=== PATIENT | male | born 1950 | race Caucasian/White ===

== ENCOUNTER 2017-04-06 07:11 | Day surgery (SDC) | payer OTHER, MEDICARE ==
[~2017-04-06 07:11] MED LIST: Lactated Ringers 1,000 ML IV SCH; ceFAZolin 2 GM in Premix Bag 1 BAG IV ONE
[2017-04-06] MEDS ORDERED: Propofol 200 MG/20 ML SDV ONE ×2 (07:55→08:59)
--- NOTE | 2017-04-06 08:07 | PCM.PREANE ---
Preanesthetic Assessment - Anesthesia/Transfusion/Family Hx Anesthesia History: Prior Anesthesia Without Reaction Family History of Anesthesia Reaction: No Transfusion History: No Prior Transfusion(s) - Review of Systems General: No Symptoms Pulmonary: No Symptoms Cardiovascular: No Symptoms Gastrointestinal: No Symptoms Neurological: No Symptoms Other: Reports: None - Physical Assessment NPO Status Date: 04/05/17 Height: 1.88 m Weight: 114.305 kg ASA Class: 2 Mental Status: Alert & Oriented x3 Airway Class: Mallampati = 1 Dentition: Reports: Normal Dentition ROM/Head Extension: Full Lungs: Clear to Auscultation, Normal Respiratory Effort Cardiovascular: Regular Rate, Regular Rhythm - Allergies Allergies/Adverse Reactions: Allergies Allergy/AdvReac Type Severity Reaction Status Date / Time No Known Allergies Allergy Verified 04/01/17 13:59 - Blood Blood Available: No - Anesthesia Plan Pre-Op Medication Ordered: None - Acknowledgements Anesthesia Type Planned: MAC Pt an Appropriate Candidate for the Planned Anesthesia: Yes Alternatives and Risks of Anesthesia Discussed w Pt/Guardian: Yes Pt/Guardian Understands and Agrees with Anesthesia Plan: Yes Additional Comments: PLAN: MAC with No benzodiazepines PreAnesthesia Questionnaire Other HEENT History: wears glasses Cardiovascular History: Reports: High Cholesterol Respiratory History: Reports: Other (See Below) Other Respiratory History: was told he has some scaring in his lungs Gastrointestinal History: Reports: Other (See Below) Other Gastrointestinal History: hx of sigmoid colon cancer Genitourinary History: Reports: BPH Musculoskeletal History: Reports: Arthritis, Back Pain, Chronic Endocrine/Metabolic History: Reports: Hypothyroidism Oncologic (Cancer) History: Reports: Colon - Past Surgical History GI Surgical History: Reports: Colon, Colonoscopy Other GI Surgeries/Procedures: hx of colon resection, hx of exploratory Laparotomy Oncologic Surgical History: Reports: Other (See Below) Other Oncologic Surgeries/Procedures: Colon Resection - SUBSTANCE USE Smoking Status *Q: Former Smoker Second Hand Smoke Exposure: Yes Days Per Week of Alcohol Use: 0 Number of Drinks Per Day: 0 Total Drinks Per Week: 0 Recreational Drug Use History: Yes Recreational Drug Last Use: quit marijuana in 1990 - HOME MEDS Home Medications: Home Meds Ascorbic Acid 500 mg PO DAILY 04/01/17 [History] Cholecalciferol (Vitamin D3) [Vitamin D3] 400 mg PO DAILY 04/01/17 [History] Finasteride 5 mg PO DAILY 04/01/17 [History] Fish Oil/[place]-3 Fatty Acids [Fish Oil 1,000 MG] 2,000 mg PO BID 04/01/17 [ History] Levothyroxine Sodium [Synthroid] 125 mcg PO DAILY 04/01/17 [History] Meloxicam 15 mg PO DAILY 04/01/17 [History] Simvastatin [Zocor] 10 mg PO BEDTIME 04/01/17 [History] Testosterone Cypionate 150 mg IM ASDIRECTED 04/01/17 [History] Ubidecarenone [Co Q-10] 100 mg PO DAILY 04/01/17 [History] - CURRENT (IN HOUSE) MEDS Current Meds: Current Medications Lactated Ringer's (Ringers, Lactated) 1,000 mls @ 125 mls/hr IV ASDIRECTED WYATT Discontinued Medications Cefazolin Sodium/Dextrose 2 gm (/ Premix) 50 mls @ 100 mls/hr IV ONETIME ONE Stop: 04/06/17 05:29
[2017-04-06] MEDS ORDERED: ePHEDrine 50 MG/ML SDV ONE (08:11)
[2017-04-06] MEDS ORDERED: Midazolam 1 MG/ML 2 ML SDV ONE (08:15)
[2017-04-06] MEDS ORDERED: Lidocaine 2% 5 ML SDV ONE (08:15)
[2017-04-06] MEDS ORDERED: fentaNYL 100 MCG/2 ML SDV ONE (08:15)
[2017-04-06] MEDS ORDERED: Bupivacaine 0.25%/EPINEPHrine 1:200,000 10 ML SDV ONE (08:57)
[2017-04-06] MEDS ORDERED: Acetaminophen/oxyCODONE 325-7.5 MG Tab PO ONE (09:00)
--- NOTE | 2017-04-06 09:52 | PCM.OPNOTE ---
- General Post-Op/Procedure Note Date of Surgery/Procedure: 04/06/17 Operative Procedure(s): portacath removal, L chest Findings: portacath L removed, tip is intact; [id number] Pre Op Diagnosis: portacath removal, L Post-Op Diagnosis: Same Anesthesia Technique: MAC, Moderate Sedation Primary Surgeon: Eric Dotson Pathology: sent Complications: None Condition: Good
--- NOTE | 2017-04-06 10:38 | OR ---
SURGEON: Eric Dotson MD DATE OF PROCEDURE: 04/06/2017 PREOPERATIVE DIAGNOSIS: Port-A-Cath removal. POSTOPERATIVE DIAGNOSIS: Port-A-Cath removal. PROCEDURE PERFORMED: Removal of Port-A-Cath from the left chest. COMPLICATIONS: None. FINDINGS: Port-A-Cath was removed en bloc and the tip was intact. PROCEDURE IN DETAIL: The patient was taken to the operating room and placed in a supine position. Upon induction of mild general sedation with Diprivan and the patient's left chest was prepped and draped in a sterile fashion. Lidocaine infiltrated at the previous port incision site and then using a skin scalpel, incision was made, which entered into the fibrous pocket of the port and the port was removed en bloc, and the pressure was applied to the jugular and tunneled site for over 5 minutes. Port site was clean, dry, and intact upon closing with 3-0 Vicryl and 3-0 Ethilon followed with appropriate dressing. The patient was then awakened and transferred to recovery room in hemodynamically stable condition. The patient tolerated the procedure well. There were no intraoperative complications. LEONELA / NBA /[id number]
--- NOTE | 2017-04-06 12:13 | PCM48HPAN ---
Post Anesthesia Note - EVALUATION WITHIN 48HRS OF ANESTHETIC Vital Signs in Normal Range: Yes Patient Participated in Evaluation: Yes Respiratory Function Stable: Yes Airway Patent: Yes Cardiovascular Function Stable: Yes Hydration Status Stable: Yes Pain Control Satisfactory: Yes Nausea and Vomiting Control Satisfactory: Yes Mental Status Recovered: Yes
--- NOTE | 2017-04-06 12:13 | PCM.POSTAN ---
POST ANESTHESIA ASSESSMENT - MENTAL STATUS Mental Status: Alert, Oriented - RESPIRATORY Respiratory Status: Respiratory Rate WNL, Airway Patent, O2 Saturation Stable - CARDIOVASCULAR CV Status: Pulse Rate WNL, Blood Pressure Stable - GASTROINTESTINAL GI Status: No Symptoms - POST OP HYDRATION Hydration Status: Adequate & Stable
== END 2017-04-06 10:50 | disposition home or self-care (01) ==
LOC: MW.SDS 07:11
PROVIDERS: ATTEND Surgery
DX: Z45.2 Encounter for adjustment and management of vascular access device (principal); M19.90 Unspecified osteoarthritis, unspecified site; N40.1 Benign prostatic hyperplasia with lower urinary tract symptoms; R35.1 Nocturia; E78.00 Pure hypercholesterolemia, unspecified; E03.9 Hypothyroidism, unspecified; Z85.038 Personal history of other malignant neoplasm of large intestine; Z86.19 Personal history of other infectious and parasitic diseases; Z87.891 Personal history of nicotine dependence; Z79.899 Other long term (current) drug therapy; Z90.49 Acquired absence of other specified parts of digestive tract; Z98.890 Other specified postprocedural states
CPT/HCPCS: 36590; J2250; J3010; J7120; 00400; 88300; J2704

== ENCOUNTER 2017-07-27 12:56 | Emergency (ER) | payer OTHER, MEDICARE ==
[2017-07-27] MEDS ORDERED: Ketorolac 30 MG/ML SDV IVPUSH ONE (13:07)
[2017-07-27] MEDS ORDERED: Ondansetron 4 MG/2 ML SDV IVPUSH ONE ×2 (13:07→15:34)
--- NOTE | 2017-07-27 13:08 | EDM.PDOC ---
ED HPI GENERAL MEDICAL PROBLEM - General Chief Complaint: Abdominal Pain Stated Complaint: SENT BY [facility] CT SCAN Time Seen by Provider: 07/27/17 13:08 Source of Information: Reports: Patient - History of Present Illness INITIAL COMMENTS - FREE TEXT/NARRATIVE: HISTORY AND PHYSICAL: History of present illness: [ Patient presents from the [facility] with abdominal pain, has a history of a ventral abdominal surgery he states is secondary to hernia however I see on his records he has a history of bowel perforation, which would explanain his large midline incision. Apparently the [facility] had performed ultrasound of the abdomen and there is evidence of bowel herniation He was sent here for lab and CT of his abdomen pelvis, he does complain of 4 out of 10 pain he is in no distress he has had some vomiting over the last day or 2 He has been nothing by mouth over the last 24 hours per patient Currently no fever vomiting chills sweats no chest pain shortness of breath headache dizziness palpitation about a urine symptoms Cardiac history Review of systems: As per history of present illness and below otherwise all systems reviewed and negative. Past medical history: As per history of present illness and as reviewed below otherwise noncontributory. Surgical history: As per history of present illness and as reviewed below otherwise noncontributory. Social history: No reported history of drug or alcohol abuse. Family history: As per history of present illness and as reviewed below otherwise noncontributory. Physical exam: HEENT: Atraumatic, normocephalic, pupils reactive, negative for conjunctival pallor or scleral icterus, mucous membranes moist, throat clear, neck supple, nontender, trachea midline. Lungs: Clear to auscultation, breath sounds equal bilaterally, chest nontender. Heart: S1S2, regular, negative for clicks, rubs, or JVD. Abdomen: Soft, nondistended, nontender. Negative for masses or hepatosplenomegaly. Negative for costovertebral tenderness. Pelvis: Stable nontender. Genitourinary: Deferred. Rectal: Deferred. Extremities: Atraumatic, negative for cords or calf pain. Neurovascular unremarkable. Neuro: Awake, alert, oriented. Cranial nerves II through XII unremarkable. Cerebellum unremarkable. Motor and sensory unremarkable throughout. Exam nonfocal. Diagnostics: [CBC CMP lipase troponin UA CT abdomen pelvis with contrast ] Therapeutics: [Normal saline 500 mL bolus Zofran 8 mg IV Toradol 30 mg IV Morphine 2 mg IV NG tube placement Nothing by mouth Discussed with Dr. Gayle he did initially except the patient Patient in the interim had refused treatment here at the facility requesting treatment at [place] Shortly after this Dr. Gayle and return calls stating that we may not have appropriate mesh after reviewing the case and would likely need a larger facility Dr. Cole general surgeon on-call at [facility] gracious in accepting the patient through [facility] for evaluation and treatment ] Impression: [Abdominal pain Ventral small bowel herniation with obstruction Leukocytosis ] Definitive disposition and diagnosis as appropriate pending reevaluation and review of above. abdomen Pain Score (Numeric/FACES): 8 - Related Data Allergies Allergy/AdvReac Type Severity Reaction Status Date / Time No Known Allergies Allergy Verified 07/27/17 13:03 Home Meds: Home Meds Ascorbic Acid 500 mg PO DAILY 04/01/17 [History] Cholecalciferol (Vitamin D3) [Vitamin D3] 400 mg PO DAILY 04/01/17 [History] Finasteride 5 mg PO DAILY 04/01/17 [History] Fish Oil/[place]-3 Fatty Acids [Fish Oil 1,000 MG] 2,000 mg PO BID 04/01/17 [ History] Levothyroxine Sodium [Synthroid] 125 mcg PO DAILY 04/01/17 [History] Meloxicam 15 mg PO DAILY 04/01/17 [History] Simvastatin [Zocor] 10 mg PO BEDTIME 04/01/17 [History] Past Medical History Other HEENT History: wears glasses Cardiovascular History: Reports: High Cholesterol Respiratory History: Reports: Other (See Below) Other Respiratory History: was told he has some scaring in his lungs Gastrointestinal History: Reports: Other (See Below) Other Gastrointestinal History: hx of sigmoid colon cancer Genitourinary History: Reports: BPH Musculoskeletal History: Reports: Arthritis, Back Pain, Chronic Endocrine/Metabolic History: Reports: Hypothyroidism Oncologic (Cancer) History: Reports: Colon - Past Surgical History GI Surgical History: Reports: Colon, Colonoscopy Other GI Surgeries/Procedures: hx of colon resection, hx of exploratory Laparotomy Oncologic Surgical History: Reports: Other (See Below) Other Oncologic Surgeries/Procedures: Colon Resection Social & Family History - Tobacco Use Smoking Status *Q: Former Smoker Second Hand Smoke Exposure: Yes - Alcohol Use Days Per Week of Alcohol Use: 0 Number of Drinks Per Day: 0 Total Drinks Per Week: 0 - Recreational Drug Use Recreational Drug Use: Yes Drug Use in Last 12 Months: No Recreational Drug Last Use: quit marijuana in 1990 ED ROS GENERAL - Review of Systems Review Of Systems: ROS reveals no pertinent complaints other than HPI. ED EXAM, GENERAL - Physical Exam Exam: See Below Course - Vital Signs Last Recorded V/S: Last Vital Signs Temp 98.9 F 07/27/17 14:15 Pulse 98 07/27/17 14:15 Resp 18 07/27/17 14:15 BP 135/74 07/27/17 14:15 Pulse Ox 92 L 07/27/17 14:15 - Orders/Labs/Meds Orders: Active Orders 24 hr Category Date Time Status EKG Documentation Completion [RC] STAT Care 07/27/17 13:07 Active Chest 1V Frontal [CR] Stat Exams 07/27/17 15:09 Ordered Sodium Chloride 0.9% [Normal Saline] 500 ml Med 07/27/17 13:15 Active IV STAT Medication Orders Sodium Chloride (Normal Saline) 500 mls @ 999 mls/hr IV STAT WYATT Last Admin: 07/27/17 13:24 Dose: 999 mls/hr Labs: Laboratory Tests 07/27/17 07/27/17 07/27/17 Range/Units 13:07 13:24 13:24 WBC 15.48 H (4.0-11.0) K/uL RBC 5.73 (4.50-5.90) M/uL Hgb 18.3 H (13.0-17.0) g/dL Hct 53.1 H (38.0-50.0) % MCV 92.7 (80.0-98.0) fL MCH 31.9 (27.0-32.0) pg MCHC 34.5 (31.0-37.0) g/dL RDW Std Deviation 47.6 (28.0-62.0) fl RDW Coeff of Elena 14 (11.0-15.0) % Plt Count 235 (150-400) K/uL MPV 10.60 (7.40-12.00) fL Neut % (Auto) 87.8 H (48.0-80.0) % Lymph % (Auto) 6.8 L (16.0-40.0) % [place] % (Auto) 5.2 (0.0-15.0) % Eos % (Auto) 0.1 (0.0-7.0) % Baso % (Auto) 0.1 (0.0-1.5) % Neut # (Auto) 13.6 H (1.4-5.7) K/uL Lymph # (Auto) 1.1 (0.6-2.4) K/uL [place] # (Auto) 0.8 (0.0-0.8) K/uL Eos # (Auto) 0.0 (0.0-0.7) K/uL Baso # (Auto) 0.0 (0.0-0.1) K/uL Nucleated RBC % 0.0 /100WBC Nucleated RBCs # 0 K/uL Sodium 139 (136-146) mmol/L Potassium 4.2 (3.5-5.1) mmol/L Chloride 107 (98-110) mmol/L Carbon Dioxide 22 (21-31) mmol/L BUN 22 (6.0-23.0) mg/dL Creatinine 1.1 (0.6-1.5) mg/dL Est Cr Clr Drug Dosing 77.84 mL/min Estimated GFR (MDRD) > 60.0 ml/min Glucose 163 H (60-110) mg/dL Calcium 8.9 (8.8-10.8) mg/dL Total Bilirubin 0.9 (0.1-1.5) mg/dL AST 27 (5-40) IU/L ALT 42 (8-54) IU/L Alkaline Phosphatase 79 (40-150) Troponin I < 0.10 (0.0-0.29) NG/ML Total Protein 7.9 (6.0-8.0) g/dL Albumin 4.4 (3.4-4.8) g/dL Globulin 3.5 (2.0-3.5) g/dL Albumin/Globulin Ratio 1.3 (1.3-2.8) Lipase 20 (7-80) U/L Urine Color YELLOW Urine Appearance CLEAR Urine pH 6.0 (5.0-8.0) Ur Specific [place] >= 1.030 (1.001-1.035) Urine Protein 100 (NEGATIVE) mg/dL Urine Glucose (UA) NEGATIVE (NEGATIVE) mg/dL Urine Ketones NEGATIVE (NEGATIVE) mg/dL Urine Occult Blood TRACE-INTACT (NEGATIVE) Urine Nitrite NEGATIVE (NEGATIVE) Urine Bilirubin NEGATIVE (NEGATIVE) Urine Urobilinogen 0.2 (<2.0) EU/dL Ur Leukocyte Esterase NEGATIVE (NEGATIVE) Urine RBC 0-2 (0-2/HPF) Urine WBC 0-1 (0-5/HPF) Ur Epithelial Cells OCCASIONAL (NONE-FEW) Urine Bacteria RARE (NEGATIVE) Urine Mucus LIGHT (NONE-MOD) Meds: Medications Generic Name Dose Route Start Last Admin Trade Name Freq PRN Reason Stop Dose Admin Sodium Chloride 500 mls @ 999 mls/hr 07/27/17 13:15 07/27/17 13:24 Normal Saline IV 999 mls/hr STAT WYATT Administration Discontinued Medications Generic Name Dose Route Start Last Admin Trade Name Freq PRN Reason Stop Dose Admin Iopamidol 100 ml 07/27/17 14:21 07/27/17 14:23 Isovue Multipack-370 (76%) IVPUSH 07/27/17 14:22 100 ml ONETIME STA Administration Ketorolac Tromethamine 30 mg 07/27/17 13:07 07/27/17 13:24 Toradol IVPUSH 07/27/17 13:08 30 mg ONETIME ONE Administration Morphine Sulfate 2 mg 07/27/17 15:08 07/27/17 15:19 Morphine IVPUSH 07/27/17 15:09 2 mg ONETIME ONE Administration Ondansetron HCl 8 mg 07/27/17 13:07 07/27/17 13:24 Zofran IVPUSH 07/27/17 13:08 8 mg ONETIME ONE Administration Departure - Departure Time of Disposition: 15:25 Disposition: DC/Tfer to Other 70 Condition: Fair Clinical Impression: Ventral hernia with bowel obstruction - Discharge Information Referrals: PCP,None [Primary Care Provider] - Forms: ED Department Discharge - My Orders Last 24 Hours: My Active Orders 07/27/17 13:07 EKG Documentation Completion [RC] STAT 07/27/17 13:15 Sodium Chloride 0.9% [Normal Saline] 500 ml IV STAT 07/27/17 15:09 Chest 1V Frontal [CR] Stat - Assessment/Plan Last 24 Hours: My Active Orders 07/27/17 13:07 EKG Documentation Completion [RC] STAT 07/27/17 13:15 Sodium Chloride 0.9% [Normal Saline] 500 ml IV STAT 07/27/17 15:09 Chest 1V Frontal [CR] Stat
[2017-07-27] MEDS ORDERED: Sodium Chloride 0.9% 500 ML IV SCH (13:15)
[2017-07-27 13:58] LABS: CHLORIDE,CL 107 mmol/L (98-110); SODIUM,NA 139 mmol/L (136-146)
[2017-07-27] MEDS ORDERED: Iopamidol 755 MG/ML 500 ML Multipack Bottle IVPUSH STA (14:21)
--- NOTE | 2017-07-27 15:02 | CT ---
CT of the abdomen and pelvis with contrast. HISTORY: Pain TECHNIQUE: Axial CT images were obtained of the abdomen and pelvis following administration of 100 mL of Isovue-370 in the left antecubital fossa without complication. Coronal and sagittal reconstructio ns obtained. FINDINGS: The lung bases are clear, no pleural effusion. The liver, spleen, adrenal glands, and pancreas appear normal. Probable tiny gallstones noted. No bul ky retroperitoneal lymphadenopathy or abdominal ascites. The kidneys enhance and function symmetrically without evidence of obstructive uropathy. 3 mm nonobst ructing stone within the right kidney. There is a ventral abdominal hernia containing small bowel with mild prominence of the proximal smal l bowel measuring up to 3.6 cm. There is a layer of fluid along the ventral abdominal wall adjacent t o the hernia and tracking along the muscular wall. The small bowel distal to the hernia is decompress ed. Small bowel within and distal to the hernia enhances. Stool and gas is noted within the colon. Di verticulosis without evidence of diverticulitis. Moderate prostatomegaly. Visualized osseous structures appear normal. IMPRESSION: 1. Ventral abdominal hernia containing small bowel with decompressed small bowel distal to the hernia consistent with a mechanical bowel obstruction. There is fluid tracking along the hernia and abdomin al wall. 2. Diverticulosis without evidence of diverticulitis. 3. Moderate prostatomegaly. 4. Probable tiny cholelithiasis. 5. Nonobstructing nephrolithiasis.
[2017-07-27] MEDS ORDERED: Morphine 2 MG/ML Syringe IVPUSH ONE (15:08)
--- NOTE | 2017-07-27 15:23 | CR ---
EXAMINATION: Portable chest radiograph. HISTORY: Shortness of breath. FINDINGS: The trachea is midline. The cardiomediastinal silhouette is within normal limits. No pulmonary infilt rates, effusions or pneumothorax. Mild interstitial prominence. Osseous structures appear unremarkable. IMPRESSION: No acute cardiopulmonary process.
[2017-07-27] MEDS ORDERED: Ondansetron 4 MG/2 ML SDV ONE (15:36)
[2017-07-27] MEDS ORDERED: Prochlorperazine 10 MG/2 ML SDV IVPUSH ONE (16:25)
== END 2017-07-27 16:31 | disposition other institution (70) ==
LOC: MW.ED 12:56
DX: K43.6 Other and unspecified ventral hernia with obstruction, without gangrene (principal); E78.00 Pure hypercholesterolemia, unspecified; E03.9 Hypothyroidism, unspecified; Z87.891 Personal history of nicotine dependence; Z79.899 Other long term (current) drug therapy
CPT/HCPCS: 36415; 43753; 71045; 74177; 80053; 81001; 83690; 84484; 85025; 93005; 96361; 96374; 96375; 96376; 99285; J1885; J2270; J2405; J7040; Q9967; 99282

== ENCOUNTER 2018-07-15 10:22 | Emergency (ER) | payer OTHER, MEDICARE ==
--- NOTE | 2018-07-15 10:58 | EDM.PDOC ---
ED HPI GENERAL MEDICAL PROBLEM - General Chief Complaint: Abdominal Pain Stated Complaint: ABD PAIN Time Seen by Provider: 07/15/18 10:39 Source of Information: Reports: Patient History Limitations: Reports: No Limitations - History of Present Illness INITIAL COMMENTS - FREE TEXT/NARRATIVE: History of present illness: Patient has a history of ventral hernia secondary to a perforated colon during a colonoscopy requiring an exploratory laparotomy in 2013 that has been repaired 5 times. He is currently followed by Dr. Townsend at the [facility]. He is scheduled for surgery for another repair of this ventral hernia after he loses 20 pounds. Last night patient was working out and he felt a sudden sharp pain in his abdomen and has had continuing pain through the night. His belly feels swollen and he states his "bowels are out". Patient denies any fevers, chills, vomiting and states he is passing flatus. He is nauseated. Review of systems: As per history of present illness and below otherwise all systems reviewed and negative. Past medical history: As per history of present illness and as reviewed below otherwise noncontributory. Surgical history: As per history of present illness and as reviewed below otherwise noncontributory. Social history: No reported history of drug or alcohol abuse. Family history: As per history of present illness and as reviewed below otherwise noncontributory. Physical exam: General: Well developed, well nourished in NAD HEENT: Atraumatic, normocephalic, pupils reactive, negative for conjunctival pallor or scleral icterus, mucous membranes moist, throat clear, neck supple, nontender, trachea midline. Lungs: Clear to auscultation, breath sounds equal bilaterally, chest nontender. Heart: S1S2, regular, negative for clicks, rubs, or JVD. Abdomen: Midline scar well-healed, hypoactive bowel sounds but present , Soft, distended, tenderness of his lower abdomen without rebound or guarding. Negative for masses or hepatosplenomegaly. Negative for costovertebral tenderness. Pelvis: Stable nontender. Genitourinary: Deferred. Rectal: Deferred. Extremities: Atraumatic, negative for cords or calf pain. Neurovascular unremarkable. Neuro: Awake, alert, oriented. Cranial nerves II through XII unremarkable. Cerebellum unremarkable. Motor and sensory unremarkable throughout. Exam nonfocal. Skin:warm and dry Diagnostics: CBC, chemistry, lactate, CT abdomen pelvis Therapeutics: IV fluid, Dilaudid, Zofran, Unasyn, NG, [place] ED Course: Patient remained stable while in the ED. CT showed closed loop bowel obstruction within the hernia Dr[facility] were pushed and were evaluated by him. Except at the patient for transfer Impression: Hernia with closed loop bowel obstruction within the hernia Prescriptions: None Plan: Transfer to [facility] surgery for definitive treatment Definitive disposition and diagnosis as appropriate pending reevaluation and review of above. Abdomen Pain Score (Numeric/FACES): 10 - Related Data Allergies Allergy/AdvReac Type Severity Reaction Status Date / Time pollen extracts Allergy Other Verified 07/15/18 10:56 Home Meds: Home Meds Ascorbic Acid 500 mg PO DAILY 04/01/17 [History] Cholecalciferol (Vitamin D3) [Vitamin D3] 400 mg PO DAILY 04/01/17 [History] Finasteride 5 mg PO DAILY 04/01/17 [History] Fish Oil/Gleason-3 Fatty Acids [Fish Oil 1,000 MG] 2,000 mg PO BID 04/01/17 [ History] Levothyroxine Sodium [Synthroid] 125 mcg PO DAILY 04/01/17 [History] Meloxicam 15 mg PO DAILY 04/01/17 [History] Cholestyramine/Aspartame [Prevalite Packet] 4 gm PO BID 07/15/18 [History] Past Medical History HEENT History: Reports: Other (See Below) Other HEENT History: wears glasses Cardiovascular History: Reports: High Cholesterol Respiratory History: Reports: Other (See Below) Other Respiratory History: was told he has some scaring in his lungs Gastrointestinal History: Reports: Other (See Below) Other Gastrointestinal History: hx of sigmoid colon cancer Genitourinary History: Reports: BPH Musculoskeletal History: Reports: Arthritis, Back Pain, Chronic Neurological History: Reports: None Psychiatric History: Reports: None Endocrine/Metabolic History: Reports: Hypothyroidism Oncologic (Cancer) History: Reports: Colon Dermatologic History: Reports: None - Past Surgical History GI Surgical History: Reports: Colon, Colonoscopy Other GI Surgeries/Procedures: hx of colon resection, hx of exploratory Laparotomy Oncologic Surgical History: Reports: Other (See Below) Other Oncologic Surgeries/Procedures: Colon Resection Social & Family History - Family History Family Medical History: Noncontributory - Caffeine Use Caffeine Use: Reports: None ED ROS GENERAL - Review of Systems Review Of Systems: ROS reveals no pertinent complaints other than HPI. ED EXAM, GI/ABD - Physical Exam Exam: See Below (See history of present illness) Course - Vital Signs Last Recorded V/S: Last Vital Signs Temp 97.2 F 07/15/18 10:52 Pulse 77 07/15/18 13:04 Resp 16 07/15/18 13:04 BP 165/98 H 07/15/18 13:04 Pulse Ox 96 07/15/18 13:04 - Orders/Labs/Meds Orders: Active Orders 24 hr Category Date Time Status Urinary Catheter Assessment [RC] ASDIRECTED Care 07/15/18 13:49 Active Urinary Catheter Insertion [Insert Urinary Catheter] [ Care 07/15/18 13:48 Ordered OM.PC] Stat Nasogastric Orogastric Tube Insertion [OM.PC] Stat Oth 07/15/18 13:48 Ordered Nasogastric Orogastric Tube Insertion [OM.PC] Stat Oth 07/15/18 14:50 Ordered Saline Lock Insert [OM.PC] Stat Oth 07/15/18 11:06 Ordered Labs: Laboratory Tests 07/15/18 07/15/18 07/15/18 Range/Units 11:25 11:25 11:25 WBC 12.99 H (4.0-11.0) K/uL RBC 5.34 (4.50-5.90) M/uL Hgb 17.0 (13.0-17.0) g/dL Hct 48.7 (38.0-50.0) % MCV 91.2 (80.0-98.0) fL MCH 31.8 (27.0-32.0) pg MCHC 34.9 (31.0-37.0) g/dL RDW Std Deviation 42.9 (28.0-62.0) fl RDW Coeff of Elena 13 (11.0-15.0) % Plt Count 218 (150-400) K/uL MPV 10.80 (7.40-12.00) fL Neut % (Auto) 87.0 H (48.0-80.0) % Lymph % (Auto) 7.4 L (16.0-40.0) % Sumner % (Auto) 5.4 (0.0-15.0) % Eos % (Auto) 0.1 (0.0-7.0) % Baso % (Auto) 0.1 (0.0-1.5) % Neut # (Auto) 11.3 H (1.4-5.7) K/uL Lymph # (Auto) 1.0 (0.6-2.4) K/uL Sumner # (Auto) 0.7 (0.0-0.8) K/uL Eos # (Auto) 0.0 (0.0-0.7) K/uL Baso # (Auto) 0.0 (0.0-0.1) K/uL Nucleated RBC % 0.0 /100WBC Nucleated RBCs # 0 K/uL Lactate 2.3 H (0.20-2.00) mmol/L Sodium 137 (136-148) mmol/L Potassium 4.6 (3.5-5.1) mmol/L Chloride 103 (98-107) mmol/L Carbon Dioxide 24.3 (21.0-32.0) mmol/L BUN 16 (7.0-18.0) mg/dL Creatinine 1.1 (0.8-1.3) mg/dL Est Cr Clr Drug Dosing 76.80 mL/min Estimated GFR (MDRD) > 60.0 ml/min Glucose 155 H (74-106) mg/dL Calcium 9.7 (8.5-10.1) mg/dL Total Bilirubin 0.5 (0.2-1.0) mg/dL AST 132 H (15-37) IU/L ALT 181 H (14-63) IU/L Alkaline Phosphatase 127 H (46-116) U/L Total Protein 8.0 (6.4-8.2) g/dL Albumin 3.8 (3.4-5.0) g/dL Globulin 4.2 H (2.6-4.0) g/dL Albumin/Globulin Ratio 0.9 (0.9-1.6) Meds: Medications Discontinued Medications Generic Name Dose Route Start Last Admin Trade Name Freq PRN Reason Stop Dose Admin Hydromorphone HCl 0.5 mg 07/15/18 11:07 07/15/18 11:36 Dilaudid IVPUSH 07/15/18 11:08 0.5 mg ONETIME ONE Administration Hydromorphone HCl 0.5 mg 07/15/18 13:50 07/15/18 14:11 Dilaudid IVPUSH 07/15/18 13:51 0.5 mg ONETIME ONE Administration Hydromorphone HCl Confirm 07/15/18 13:52 07/15/18 14:13 Dilaudid Administered 07/15/18 13:53 Not Given Dose 1 mg .ROUTE .STK-MED ONE Sodium Chloride 1,000 mls @ 999 mls/hr 07/15/18 11:07 07/15/18 11:30 Normal Saline IV 07/15/18 12:07 999 mls/hr .Bolus ONE Administration Ampicillin Sodium/Sulbactam 100 mls @ 200 mls/hr 07/15/18 13:46 07/15/18 14: 18 Sodium 3 gm/ Sodium Chloride IV 07/15/18 14:15 Not Given ONETIME ONE Sodium Chloride 1,000 mls @ 999 mls/hr 07/15/18 13:46 07/15/18 13:50 Normal Saline IV 07/15/18 14:46 999 mls/hr .Bolus ONE Administration Ampicillin Sodium/Sulbactam 100 mls @ 200 mls/hr 07/15/18 13:54 07/15/18 14: 14 Sodium 3 gm/ Sodium Chloride IV 07/15/18 14:15 200 mls/hr ONETIME ONE Administration Ondansetron HCl 4 mg 07/15/18 11:07 07/15/18 11:34 Zofran IVPUSH 07/15/18 11:08 4 mg ONETIME ONE Administration Sodium Chloride 10 ml 07/15/18 11:06 Saline Flush FLUSH ASDIRECTED PRN Keep Vein Open Sodium Chloride 2.5 ml 07/15/18 11:06 Saline Flush FLUSH ASDIRECTED PRN Keep Vein Open Departure - Departure Time of Disposition: 19:19 Disposition: DC/Tfer to Acute Hospital 02 Condition: Fair Clinical Impression: Ventral hernia with bowel obstruction - Discharge Information *PRESCRIPTION DRUG MONITORING PROGRAM REVIEWED*: No *COPY OF PRESCRIPTION DRUG MONITORING REPORT IN PATIENT DIANA: No Referrals: Elroy Cruz MD [Primary Care Provider] - Forms: ED Department Discharge - My Orders Last 24 Hours: My Active Orders 07/15/18 11:06 Saline Lock Insert [OM.PC] Stat 07/15/18 13:48 Urinary Catheter Insertion [Insert Urinary Catheter] [OM.PC] Stat Nasogastric Orogastric Tube Insertion [OM.PC] Stat 07/15/18 13:49 Urinary Catheter Assessment [RC] ASDIRECTED 07/15/18 14:50 Nasogastric Orogastric Tube Insertion [OM.PC] Stat - Assessment/Plan Last 24 Hours: My Active Orders 07/15/18 11:06 Saline Lock Insert [OM.PC] Stat 07/15/18 13:48 Urinary Catheter Insertion [Insert Urinary Catheter] [OM.PC] Stat Nasogastric Orogastric Tube Insertion [OM.PC] Stat 07/15/18 13:49 Urinary Catheter Assessment [RC] ASDIRECTED 07/15/18 14:50 Nasogastric Orogastric Tube Insertion [OM.PC] Stat
[2018-07-15] MEDS ORDERED: Sodium Chloride 0.9% 10 ML Syringe FLUSH PRN (11:06)
[2018-07-15] MEDS ORDERED: Sodium Chloride 0.9% 2.5 ML Syringe FLUSH PRN (11:06)
[2018-07-15] MEDS ORDERED: Sodium Chloride 0.9% 1,000 ML IV ONE ×2 (11:07→13:46)
[2018-07-15] MEDS ORDERED: Ondansetron 4 MG/2 ML SDV IVPUSH ONE (11:07)
[2018-07-15] MEDS ORDERED: HYDROmorphone 1 MG/ML Syringe IVPUSH ONE ×2 (11:07→13:50)
[2018-07-15 12:08] LABS: CHLORIDE,CL 103 mmol/L (98-107); SODIUM,NA 137 mmol/L (136-148)
--- NOTE | 2018-07-15 12:57 | CT ---
CT of the abdomen and pelvis without contrast. HISTORY: Pain TECHNIQUE: Axial CT images were obtained of the abdomen and pelvis without contrast. Coronal and sagittal reconstructions obtained. FINDINGS: The lung bases are clear, no pleural effusion. There is mild to moderate fatty infiltration of the liver. Cholelithiasis without evidence of cholecystitis. Spleen, adrenal glands, and pancreas appear unremarkable for noncontrast examination. There is no bulky retroperitoneal lymphadenopathy. No abdominal ascites. Nonobstructing right nephrolithiasis. There is a midline infraumbilical hernia containing a portion of bowel. There are several loops of dilated small bowel with a moderate amount of free fluid noted within the hernia itself. This is likely a closed loop. Appendectomy. Anastomosis changes noted near the rectosigmoid junction. Mild diverticulosis without evidence of diverticulitis. Moderate prosthetic prominence. Small fat-containing left inguinal hernia. Urinary bladder is otherwise normal. There are a few tiny more superior midline hernias containing fat. The visualized osseous structures appear normal. IMPRESSION: 1. Likely closed loop small bowel obstruction secondary to herniation through a for umbilical abdominal hernia. There is moderate adjacent free fluid and early stranding. 2. Cholelithiasis without evidence cholecystitis. 3. Moderate fatty infiltration of liver. 4. Mild diverticulosis without evidence of diverticulitis. 5. Tiny fat-containing left inguinal hernia. 6. Mild/moderate prostatomegaly.
[2018-07-15] MEDS ORDERED: Ampicillin/Sulbactam Na 3 GM in Sodium Chloride 0.9% 100 ML IV ONE ×2 (13:46→13:54)
[2018-07-15] MEDS ORDERED: HYDROmorphone 1 MG/ML Syringe ONE (13:52)
--- NOTE | 2018-07-15 15:05 | CR ---
EXAMINATION: Abdomen HISTORY: NG tube placement COMPARISON: CT from the same day TECHNIQUE: AP views of the abdomen FINDINGS: There is a partially visualized NG tube with the tip near the gastroesophageal junction. Multiple dilated loops of small bowel again noted measuring up to 4.7 cm. Osseous structures appear normal. No organomegaly. IMPRESSION: 1. NG tube noted with tip near the gastroesophageal junction, this could be advanced at least 10 cm to allow the side-port to pass into the stomach. 2. Dilated loops of small bowel again noted consistent with a bowel obstruction.
== END 2018-07-15 15:11 ==
LOC: MW.ED 10:22
DX: K43.6 Other and unspecified ventral hernia with obstruction, without gangrene (principal); E78.00 Pure hypercholesterolemia, unspecified; E03.9 Hypothyroidism, unspecified; Z79.899 Other long term (current) drug therapy
CPT/HCPCS: 36415; 43753; 51702; 74018; 74176; 80053; 83605; 85025; 96361; 96365; 96375; 96376; 99285; J0295; J1170; J2405; J7030; J7040; 99283

== ENCOUNTER → 2024-03-28 | Emergency (ER) | payer OTHER ==
[2024-03-28] MEDS: Tetracaine HCl/PF 0.5% 4 ML Bottle EYERT STA (13:57)
== END | disposition home or self-care (01) ==
LOC: MW.ED 12:17
DX: S05.01XA Injury of conjunctiva and corneal abrasion without foreign body, right eye, initial encounter (principal); E03.9 Hypothyroidism, unspecified; Z79.899 Other long term (current) drug therapy; Z91.048 Other nonmedicinal substance allergy status; X58.XXXA Exposure to other specified factors, initial encounter
CPT/HCPCS: 99283; J3490